=== PATIENT | male | born 1990 | race Caucasian/White ===

== ENCOUNTER 2021-05-24 20:24 | Emergency (ER) | payer SELFPAY ==
[~2021-05-24] VITALS: Ht 170.2 cm; Wt 62.0 kg
[2021-05-24 23:03] LABS: BASOPHILS % 0.3 % (0.0-2.0); HEMATOCRIT. 43.5 % (42.0-52.0); HEMOGLOBIN. 15.5 g/dL (14.0-18.0); LYMPHOCYTES % 9.5 % (20.0-50.0); MEAN CORPUSCULAR HEMOGLOBIN 33.3 pg (28.0-32.0); MEAN CORPUSCULAR VOLUME 93.5 fL (80.0-94.0); MEAN PLATELET VOLUME 8.5 fl (7.4-10.4); MONOCYTES % 5.7 % (2.0-8.0); NEUTROPHILS % 84.5 % (40.0-76.0); PLATELET 256 x1000/uL (130-400); RED BLOOD CELL COUNT 4.65 mill/uL (4.7-6.1); RED CELL DISTRIBUTION WIDTH 12.7 % (11.6-14.6)
[2021-05-24] MEDS ORDERED: ONDANSETRON 4MG ODT PO STA (23:03)
[2021-05-24 23:13] LABS: CHLORIDE 104 mEq/L (98-107)
[2021-05-24] MEDS ORDERED: FAMOTIDINE 20MG TABLET PO ONE (23:15)
[2021-05-25] MEDS ORDERED: FAMO-135 MT (00:39)
[2021-05-25 00:46] VITALS: BP 132/84
== END 2021-05-25 00:46 | disposition home or self-care (01) ==
LOC: ER 20:24
DX: K29.70 Gastritis, unspecified, without bleeding (principal)
CPT/HCPCS: 36415; 76700; 80053; 83690; 85025; 99284; Q0162